=== PATIENT | male | born 1965 | race Caucasian/White ===

== ENCOUNTER 2024-03-30 19:21 | Emergency (ER) | payer OTHER ==
[~2024-03-30] VITALS: Ht 188 cm; Wt 108.9 kg
[2024-03-30 20:56] LABS: BASOPHILS % (AUTO) 0.3 % (0.0-2.0); EOSINOPHILS # (AUTO) 0.2 K/uL (0.0-0.7); EOSINOPHILS % (AUTO) 1.8 % (0.0-6.0); HEMATOCRIT 43 % (39-51); HEMOGLOBIN 14.4 g/dL (13.5-17.5); LYMPHOCYTES # (AUTO) 2.1 K/uL (0.8-4.8); LYMPHOCYTES % (AUTO) 20.3 % (20.0-44.0); MEAN CORPUSCULAR HEMOGLOBIN 29 PG (26.0-33.0); MEAN CORPUSCULAR HGB CONC 34 g/dl (31.0-36.0); MEAN CORPUSCULAR VOLUME 86 fL (80-96); MONOCYTES # (AUTO) 0.9 K/uL (0.1-1.30); MONOCYTES % (AUTO) 8.5 % (2.0-12.0); NEUTROPHILS # (AUTO) 7.2 K/uL (1.8-8.9); NEUTROPHILS % (AUTO) 69.1 % (43.0-81.0); PLATELET COUNT (AUTO) 208 K/uL (150-450); RED CELL DISTRIBUTION WIDTH 13.6 % (11.5-15.0); WHITE BLOOD COUNT (AUTO) 10.4 K/uL (4.3-11.0)
[2024-03-30 21:13] LABS: LACTIC ACID 1.6 mmol/L (0.4-2.0)
[2024-03-30 21:21] LABS: CALCIUM, SERUM 9.2 mg/dL (8.5-10.1); POTASSIUM 4.1 mmol/L (3.5-5.1)
[2024-03-30 21:27] LABS: ALBUMIN 3.7 g/dL (3.4-5.0); BILIRUBIN,DIRECT 0.1 mg/dL (0.0-0.2); BILIRUBIN,TOTAL 0.4 mg/dL (0.2-1.0); TOTAL PROTEIN, SERUM 7.3 g/dL (6.4-8.2)
[2024-03-30 21:56] LABS: APPEARANCE,URINE CLEAR (CLEAR); BILIRUBIN,URINE NEGATIVE (NEGATIVE); BLOOD, URINE TRACE-INTA Ery/uL (NEGATIVE); COLOR,URINE YELLOW (YELLOW); KETONES,URINE TRACE mg/dL (NEGATIVE); LEUKOCYTE ESTERASE ,URINE NEGATIVE (NEGATIVE); NITRITE, URINE NEGATIVE (NEGATIVE); PROTEIN,URINE NEGATIVE (NEGATIVE); UGLUCOSE NEGATIVE (NEGATIVE); UROBILINOGEN,URINE 0.2 EU/dL (0.2)
[2024-03-30 22:09] LABS: ADD URINE CULTURE NO; BACTERIA,URINE None seen /HPF (None Seen); SQUAMOUS EPITHELIAL CELL,UR None Seen /HPF (None Seen); WBC,URINE NONE SEEN /HPF (0-3)
[2024-03-30] MEDS ORDERED: CLIN300C12 PO (22:19)
[2024-03-30] MEDS ORDERED: KETO10TA2 PO (22:19)
[2024-03-30] MEDS ORDERED: IOHEXOL-300 100 ML VIAL IV ONE (22:19)
[2024-03-30] MEDS ORDERED: IV NS 0.9% 500 ML IV ONE (22:20)
[2024-03-30] MEDS ORDERED: AMOX-430 PO (22:53)
[2024-03-30 23:35] VITALS: BP 128/78; TEMP 98.4; O2SAT 99
== END 2024-03-30 23:36 | disposition home or self-care (01) ==
LOC: ER 19:22
DX: K57.32 Diverticulitis of large intestine without perforation or abscess without bleeding (principal); L03.115 Cellulitis of right lower limb
CPT/HCPCS: 99285; 74177; 73630; 85025; 80048; 83605; 83690; 80076; 81001; 36415; J7040; Q9967